=== PATIENT | female | born 1985 | race Caucasian/White ===

== ENCOUNTER 2023-10-03 18:33 | Emergency (ER) | payer BC ==
[~2023-10-03] VITALS: Ht 170.2 cm; Wt 56.8 kg
[2023-10-03 18:39] VITALS: TEMP 98
[2023-10-03 19:23] LABS: BASO # 0.1 K/mm3 (0.0-0.2); BASO % 0.8 % (0.0-2.0); EOS # 0.1 K/mm3 (0.0-0.7); EOS % 1.3 % (0.0-4.0); GRAN # 5.6 K/mm3 (1.4-6.5); GRAN % 58.9 % (42.2-75.2); HEMATOCRIT 40.4 % (37.0-47.0); HEMOGLOBIN 14.5 g/dl (12.5-16.0); LYMPH # 2.8 K/mm3 (1.2-3.4); LYMPH % 29.2 % (20.0-51.0); MEAN CELL VOLUME 88 fl (80.0-100.0); MEAN CORPUSCULAR HEMOGLOBIN 32 pg (27-31); MEAN CORPUSCULAR HGB CONC 36 g/dl (33.0-37.0); MEAN PLATELET VOLUME 9.8 fl (7.4-10.4); MONO # 0.9 K/mm3 (0.1-0.6); MONO % 9.6 % (1.7-9.3); PLATELET COUNT 424 K/mm3 (130-400); RED BLOOD COUNT 4.57 M/mm3 (4.10-5.30); REDCELL DISTRIBUTION WIDTH-CV 12.1 % (11.5-14.5)
[2023-10-03 19:50] LABS: COLLECTION METHOD CLEAN CATCH
[2023-10-03 20:16] LABS: PH 6.5 (5.0-8.5); URINE APPEARANCE Clear (CLEAR/HAZY); URINE BLOOD Negative (NEGATIVE); URINE COLOR Yellow (YELLOW); URINE GLUCOSE Negative (NEGATIVE); URINE KETONE Negative (NEGATIVE); URINE NITRATE Negative (NEGATIVE); URINE PROTEIN(semi-quant) Negative (NEGATIVE); URINE UROBILINOGEN 0.2 E.U/dL (0.2-1.0)
[2023-10-03 20:17] LABS: URINE RBC 0-2 /hpf (0-2)
[2023-10-03] MEDS ORDERED: Rho(D) Imm Globulin 1,500 UNITS (300 MCG)/2 ML SYRINGE IV\\IM SCH (21:00)
[2023-10-03 22:10] VITALS: BP 120/82; PULSE 78
== END 2023-10-03 22:10 | disposition home or self-care (01) ==
LOC: COL.ER 18:33
PROVIDERS: Nurse Practitioner
DX: O20.0 Threatened abortion (principal); O99.331 Smoking (tobacco) complicating pregnancy, first trimester; F17.200 Nicotine dependence, unspecified, uncomplicated; Z3A.01 Less than 8 weeks gestation of pregnancy
CPT/HCPCS: J2791

== ENCOUNTER → 2023-10-04 | Outpatient (CLI) | payer BC | LOC: COL.RAD 05:23 | DX: O20.0 Threatened abortion (principal) ==

== ENCOUNTER 2024-02-23 19:40 | Outpatient (CLI) | payer BC ==
[~2024-02-23] VITALS: Ht 170.2 cm; Wt 63.6 kg
[2024-02-23 19:45] VITALS: TEMP 98
[2024-02-23] MEDS ORDERED: LR 1,000 ML IV PRN (20:15)
[2024-02-23 20:45] VITALS: BP 121/62; PULSE 82; TEMP 98
[2024-02-23 20:53] LABS: COLLECTION METHOD CLEAN CATCH
[2024-02-23 20:56] LABS: URINE APPEARANCE CLEAR (CLEAR/HAZY); URINE BLOOD NEGATIVE (NEGATIVE); URINE COLOR YELLOW (YELLOW); URINE GLUCOSE NEGATIVE (NEGATIVE); URINE KETONE NEGATIVE (NEGATIVE); URINE NITRATE NEGATIVE (NEGATIVE); URINE PROTEIN(semi-quant) NEGATIVE (NEGATIVE); URINE UROBILINOGEN 0.2 E.U/dL (0.2-1.0)
--- NOTE | 2024-02-23 21:35 | NUR ---
IV FLUIDS COMPLETE. SL FLUSHED.
[2024-02-23] MEDS ORDERED: Betamethasone Acetate/Na Phos 6 MG/ML 5 ML MDV IM ONE (21:45)
[2024-02-23] MEDS ORDERED: Terbutaline 1 MG/ML 1 ML AMP SQ ONE (21:45)
--- NOTE | 2024-02-23 22:30 | NUR ---
PT STATES SHE IS FEELING BETTER NOW AND THE CTX'S HAVE GOTTEN FURTHER APART AND NOT TIGHT. SHE FEELS GOOD ABOUT GOING HOME. DISCHARGE PAPERWORK STARTED.
--- NOTE | 2024-02-23 22:50 | NUR ---
PT GIVEN WRITTEN AND VERBAL DISCHARGE INSTRUCTIONS. SHE WAS INFORMED TO RETURN 624 TO L&D TO GET HER SECOND DOSE OF BETAMETHAZONE. PT VERBALIZED UNDERSTANDING. SHE AMB TO BR TO VOID AND CHANGE INTO HER CLOTHES. PT AMB OUT TO HER CAR. PT NOT IN LABOR.
== END 2024-02-23 22:50 | disposition home or self-care (01) ==
LOC: LDRO 19:40
PROVIDERS: Student in an Organized Health Care Education/Training Program
DX: O47.02 False labor before 37 completed weeks of gestation, second trimester (principal); Z3A.26 26 weeks gestation of pregnancy
CPT/HCPCS: J0702; J3105; J7120

== ENCOUNTER 2024-02-24 21:38 | Outpatient (CLI) | payer BC ==
[~2024-02-24] VITALS: Ht 170.2 cm; Wt 63.6 kg
--- NOTE | 2024-02-24 21:38 | NUR ---
Ambulatory to unit for 2nd Betamethasone inj. Oriented to room, monitor plan of care. Questions invited and answerred. Pt denies uterine ctx, vaginal bleeding or LOF. States "I do have a backache but I'm moving"
[2024-02-24] MEDS ORDERED: Betamethasone Acetate/Na Phos 6 MG/ML 5 ML MDV IM ONE (21:45)
[2024-02-24 22:00] VITALS: BP 106/57; PULSE 89; TEMP 97.8
--- NOTE | 2024-02-24 22:10 | NUR ---
Difficult to maintain FHR tracing r/t gest age and frequent movements. Audible and palpable movements.
--- NOTE | 2024-02-24 22:40 | NUR ---
Discharge instructions reviewed with pt, questions invited and answerred. Ambulatory off unit.
== END 2024-02-24 22:40 | disposition home or self-care (01) ==
LOC: LDRO 21:38
DX: Z36.84 Encounter for antenatal screening for fetal lung maturity (principal); Z3A.26 26 weeks gestation of pregnancy
CPT/HCPCS: J0702

== ENCOUNTER 2024-05-09 18:10 | Inpatient (IN) | payer BC ==
[~2024-05-09] VITALS: Ht 170.2 cm; Wt 70.5 kg
[2024-05-09] VITALS (11 sets, daily range): BP systolic 140–155; BP diastolic 66–89; PULSE 70–96; TEMP 97.6–98.4
[~2024-05-09 18:10] MED LIST: PEPCID AC20 MG PO; PRENATAL TABLET PO; TUMS500 MG
--- NOTE | 2024-05-09 18:54 | NUR ---
PT OFF MONITORS TO AMBULATE HALLS.
[2024-05-09] MEDS ORDERED: LR 1,000 ML IV SCH (19:00)
[2024-05-09] MEDS ORDERED: LR & Oxytocin 500 ML IV SCH (19:00)
[2024-05-09 19:34] LABS: COLLECTION METHOD CLEAN CATCH
[2024-05-09 19:41] LABS: HEMATOCRIT 37.2 % (37.0-47.0); HEMOGLOBIN 12.8 g/dl (12.5-16.0); MEAN CELL VOLUME 88 fl (80.0-100.0); MEAN CORPUSCULAR HEMOGLOBIN 30 pg (27-31); MEAN CORPUSCULAR HGB CONC 34 g/dl (33.0-37.0); MEAN PLATELET VOLUME 11.9 fl (7.4-10.4); PLATELET COUNT 322 K/mm3 (130-400); RED BLOOD COUNT 4.22 M/mm3 (4.10-5.30); REDCELL DISTRIBUTION WIDTH-CV 13.2 % (11.5-14.5)
[2024-05-09 19:45] LABS: PH 6.5 (5.0-8.5); URINE APPEARANCE CLEAR (CLEAR/HAZY); URINE BLOOD TRACE (NEGATIVE); URINE COLOR YELLOW (YELLOW); URINE GLUCOSE NEGATIVE (NEGATIVE); URINE KETONE NEGATIVE (NEGATIVE); URINE NITRATE NEGATIVE (NEGATIVE); URINE PROTEIN(semi-quant) 2+ (NEGATIVE); URINE UROBILINOGEN 0.2 E.U/dL (0.2-1.0)
[2024-05-09 19:59] LABS: ALBUMIN 2.5 g/dL (3.5-5.0); BILIRUBIN,TOTAL 0.2 mg/dL (0.2-1.2); CALCIUM 8.5 mg/dL (8.4-10.2); CREATININE, serum 0.61 mg/dL (0.57-1.11); POTASSIUM 3.8 mEq/L (3.5-4.5); TOTAL PROTEIN 6.3 g/dl (6.2-8.1)
[2024-05-09 20:20] LABS: ANISOCYTOSIS 1+; BAND 3 % (0-10); LYMPHOCYTE 22 % (20.0-51.0); NEUTROPHILS 71 % (42.0-75.2); PLATELET ESTIMATE NORMAL (NORMAL)
[2024-05-09 21:24] LABS: TRICYCLIC ANTIDEPRESS URINE NEGATIVE (NEGATIVE)
--- NOTE | 2024-05-09 21:24 | NUR ---
PT OFF MONITORS TO AMBULATE HALLS.
[2024-05-10] VITALS (24 sets, daily range): BP systolic 66–147; BP diastolic 32–82; PULSE 62–100; TEMP 97.6–98.7
[2024-05-10] MEDS ORDERED: ROPivacaine PF 0.2% 200 ML IV ONE (00:21)
--- NOTE | 2024-05-10 00:40 | NUR ---
0010- PT REQUESTS EPIDURAL AND TO USE THE BATHROOM. PT OFF MONITOR TO USE BATHROOM, THIS NURSE TO CONTACT ANESTHESIA. 0013- Cameron AREVALO CRNA NOTIFIED OF PT REQUEST FOR EPIDURAL. WILL COME TO UNIT FOR EPIDURAL PLACEMENT. 0017- LR BOLUS STARTED, BP SET TO EVERY 5 MINUTES, PULSE OXIMETRY IN PLACE. 0027- Cameron AREVALO CRNA IN ROOM FOR EPIDURAL PLACEMENT. RISKS AND BENEFITS PRESENTED, PT OPTS FOR EPIDURAL PLACEMENT. PT TO SITTING POSITION FOR EPIDURAL PLACEMENT 0032- SINGLE SHOT GIVEN BY MIKE SMITH. PT TOLERATED WELL. 0040- REPOSITIONED PT TO LEFT WEDGE.
[2024-05-10] MEDS ORDERED: ePHEDrine 50 MG/10 ML VIAL IV PRN (01:00)
[2024-05-10] MEDS ORDERED: Naloxone 0.4 MG/ML VIAL IV PRN ×2 (01:00→06:45)
[2024-05-10] MEDS ORDERED: diphenhydrAMINE 25 MG CAP PO PRN (01:00)
[2024-05-10] MEDS ORDERED: diphenhydrAMINE 50 MG/ML 1 ML VIAL IV PRN (01:00)
[2024-05-10] MEDS ORDERED: Ondansetron 4 MG/2 ML VIAL IV PRN (01:00)
--- NOTE | 2024-05-10 03:28 | NUR ---
0203- THIS NURSE IN ROOM TO EVALUATE FOR CAUSE OF LATE DECELS. 0207- PT ASSISTED WITH POSITION CHANGED TO LEFT WEDGE AND FLUID BOLUS STARTED. 0116- PT STATES THAT SHE IS FEELING NAUSEATED AND BEGINNING TO HAVE PRESSURE AT THE PERINUEM. BP LOWER THAN PT'S BASELINE OF 140S/80S, BP CURRENTLY 107/55. WILL GIVE EPHEDRINE AND ZOFRAN. 0119- 10MG IV EPHEDRINE GIVEN, THEN 4MG ZOFRAN IV GIVEN. BP RECHECKED AND IMPROVED TO 146/81. 0224- SVE OF COMPLETE/+1 0228- DR. LIND NOTIFIED OF IMPENDING DELIVERY, ON HIS WAY FOR DELIVERY. 0230- FOY DCd, 275MLS OUT. 0238- DR. LIND IN ROOM FOR DELIVERY. BED BR0KEN DOWN. 0244- SPONTANEOUS VAGINAL DELIVERY OF VIABLE BABY GIRL THROUGH NUCHAL CORD X1. SPONTANEOUS CRY NOTED. CORD CLAMPED BY DR. LIND AND CUT BY SUPPORT PERSON. BABY TO MOTHER'S ABDOMEN AND BABY CARES ASSUMED BY Desmond MUNOZ RN. 0250- DR. LIND APPLIES GENTLE TRACTION TO THE CORD AND FUNDAL MASSAGE TO ASSIST WITH DELIVERY OF PLACENTA. PLACENTA DOESN'T RELEASE. DR. LIND THEN BEGINS REPAIR OF RIGHT LABIAL LACERATION. ONCE REPAIR COMPLETED HE AGAIN APPLIES GENTLE TRACTION TO THE CORD AND FUNDAL MASSAGE, MINIMAL BLEEDING NOTED BUT PLACENTA STILL DOESN'T RELEASE. PT STATES THAT DURING HER LAST DELIVERY SHE HAD THE SAME PROBLEM WITH NEEDING TO HAVE HER PLACENTA MANUALLY REMOVED. 0320- DR. LIND EXPLAINS TO PT AND SUPPORT PERSONS THAT HE WILL ATTEMPT A MANUAL REMOVAL OF PLACENTA. PT AGREES TO MANUAL REMOVAL ATTEMPT. AFTER SEVERAL MINUTES OF ATTEMPTING TO MANUALLY REMOVE PLACENTA, DR LIND WAS UNSUCCESSFUL AND RECOMMENDS GOING TO THE OR FOR A D&C. PT VERBALIZES UNDERSTANDING AND AGREES TO D&C. Cameron AREVALO CRNA AND AAKASH [employer] DIVISION DIRECTOR NOTIFIED BY BULMARO OF PLAN OF CARE. MIKE SMITH TO DOSE EPIDURAL FOR D&C. 0325- MIKE SMITH IN ROOM TO DOSE EPIDRUAL. 0328- MONITORING DCd AND PT TO OR FOR D&C VIA BED.
[2024-05-10] MEDS ORDERED: Midazolam 2 MG/2 ML VIAL ONE (03:47)
[2024-05-10] MEDS ORDERED: Ketorolac 30 MG/ML VIAL ONE (03:56)
[2024-05-10] MEDS ORDERED: Ondansetron 4 MG/2 ML VIAL ONE (03:56)
[2024-05-10] MEDS ORDERED: Oxytocin 10 UNITS/ML VIAL ONE (04:10)
[2024-05-10] MEDS ORDERED: Magnes Hydrox (MOM) 80 MG/ML 30 ML CUP PO PRN (04:30)
[2024-05-10] MEDS ORDERED: Loratadine 10 MG TAB PO PRN (04:30)
--- NOTE | 2024-05-10 04:35 | NUR ---
0347- PT TO OR VIA BED FOR D&C FOR RETAINED PLACENTA. PT ASSISTED TO OR TABLE. BLEEDING SCANT IN LABOR ROOM PRIOR TO ARRIVAL TO OR. WHEN SHEETS REMOVED TO PREP FOR D&C LARGE AMOUNT OF FREE FLOW BLEEDING NOTED. WILL WEIGH ALL TOWELS, CHUX PADS, ETC. LEGS PLACED IN STIRRUPS, SCRUB PERFORMED BY THIS NURSE, HEAVY BLEEDING CONTINUES. DR. LIND ATTEMPTS ONCE LAST TIME TO REMOVE PLACENTA WITH FUNDAL MASSAGE BUT IS AGAIN UNSUCCESSFUL. WILL MOVE FORWARD WITH D&C. SEE PHYSICIAN AND ANESTHESIA RECORDS. QBL IN OR OF 725, PHYSICIAN AWARE. PT STABLE AND TO RETURN TO LABOR ROOM FOR RECOVERY. 0425- PT RETURNS TO LABOR ROOM FOR RECOVERY. INITIAL BP OF 70/30s, PT STATES THAT SHE DOESN'T FEEL GOOD. 0427- FLUID BOLUS STARTED, EPHEDRINE 10MG GIVEN IV. PT CONTINUES TO STATES SHE DOESN'T FEEL GOOD 0429- BP RECHECKED, 60/30S. CHARGE NURSE NOTIFIED AND ASKED TO CONTACT ANESTHESIA. PT LAID FLAT, ANESTHESIA INSTRUCTS CHARGE TO BRING A PRESSURE BAG IN FOR FLUIDS. THIS NURSE CURRENTLY SQUEEZING IV FLUIDS IN. KRYSTIN CHAMBERLAIN AND Nicolette CHAUDHARY RN IN ROOM TO ASSIST. 0435- BP IMPROVED TO 109/68, PT STATES THAT SHE IS BEGINING TO FEEL BETTER. IVF REMAINS ON PRESSURE BAG. PITOCIN RUNNING AT 333ML/HR PER PROTOCOL. RECOVERY STARTED.
[2024-05-10] MEDS ORDERED: oxyCODONE 5 MG TAB PO PRN (06:45)
[2024-05-10] MEDS ORDERED: Measles/Mumps/Rubella Virus Vaccine Live w Diluent 0.5 ML VIAL SQ SCH (06:45)
[2024-05-10] MEDS ORDERED: Phenylephrine/Mineral Oil/Petrolatum 57 GM TUBE RC PRN (06:45)
[2024-05-10] MEDS ORDERED: Acetaminophen 500 MG TAB PO SCH (06:45)
[2024-05-10] MEDS ORDERED: Mag/Al Hydrox/Simeth Susp 30 ML CUP PO PRN (06:45)
[2024-05-10] MEDS ORDERED: Witch Hazel 50% Pads Bulk TUB TP PRN (06:45)
[2024-05-10] MEDS ORDERED: Sennosides/Docusate 8.6-50 MG TAB PO SCH (08:00)
[2024-05-10] MEDS ORDERED: Ibuprofen 800 MG TAB PO SCH ×2 (10:00→14:45)
--- NOTE | 2024-05-10 10:56 | NUR ---
0815 REPORT TAKEN FROM Brooks VILLA RN AND CARE ASSUMED. 0820 PATIENT RESTING IN BED WITH MALE FRIEND AT BEDSIDE. STATES IS IN A LOT OF PAIN WITH ABDOMNIAL CRAMPING, BACK, AND PERINEAL PAIN. OFFERED KPAD FOR BATH. REVIEWED MEDICATIONS AVAILABLE AND DENIES NARCOTIC AT THIS TIME. INT NOTED TO L FORE ARM. PATIENT EDUCATED TO ROOM AND MENU. STATES SHE'S GETTING READY TO FEED BABY. 0830 UPDATED ON BABY'S LOW TEMPERATURE AND NEED TO STAY IN NURSERY ON WARMER. PATIENT TEARFUL. KPAD PROVIDED. EDUCATED SHE CAN COME TO NURSERY TO BE WITH BABY IF SHE WOULD LIKE. 0900 VS AND ASSESSMENT COMPLETED. FUNDUS BOGGY AT FIRST. PATIENT ENCOURAGED TO ATTEMPT TO EMPTY BLADDER TO HELP KEEP UTERUS FIRM. PATIENT STATES UNDERSTANDING. 0930 PATIENT REPORTS VOIDED A LARGE AMOUNT. WORRIED THAT BABY DIDN'T NURSE. OFFERED PATIENT A PUMP. 0945 PATIENT USES BREAST PUMP AND OBTAINS 12ML COLOSTRUM.
--- NOTE | 2024-05-10 12:50 | NUR ---
PATIENT REQUEST TO LEAVE UNIT. 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 PATIENT EDUCATED SHE CAN'T LEAVE FLOOR ALONE AND REMINDED THAT THE CAMPUS IS A NON SMOKING CAMPUS EVEN IN THE PARKING LOT. ENCOURAGED TO HAVE SIGNIFICANT OTHER OBTAIN ITEMS.
[2024-05-10 12:59] LABS: BASO # 0.1 K/mm3 (0.0-0.2); BASO % 0.3 % (0.0-2.0); EOS # 0.1 K/mm3 (0.0-0.7); EOS % 0.5 % (0.0-4.0); GRAN # 15.3 K/mm3 (1.4-6.5); GRAN % 77.5 % (42.2-75.2); LYMPH % 15.1 % (20.0-51.0); MEAN CELL VOLUME 87 fl (80.0-100.0); MEAN CORPUSCULAR HGB CONC 35 g/dl (33.0-37.0); MEAN PLATELET VOLUME 11.5 fl (7.4-10.4); MONO # 1.2 K/mm3 (0.1-0.6); MONO % 5.8 % (1.7-9.3); PLATELET COUNT 321 K/mm3 (130-400); RED BLOOD COUNT 3.45 M/mm3 (4.10-5.30); REDCELL DISTRIBUTION WIDTH-CV 13.2 % (11.5-14.5)
[2024-05-10 13:05] LABS: HEMATOCRIT 29.9 % (37.0-47.0); MEAN CORPUSCULAR HEMOGLOBIN 30 pg (27-31)
[2024-05-10 13:06] LABS: HEMOGLOBIN 10.5 g/dl (12.5-16.0)
--- NOTE | 2024-05-10 15:24 | NUR ---
tradeshow worker received consult for pt with a history of substance use, adopted child, and one child with it's father due to custody. SW spoke with OB Dr. Menon who has no concerns for . SW spoke with RN Nickie who advised pt was negative for UDS upon admission. RN reports she is being appropriate with infant. RN states pt wanted information on DNA/paternity testing. RELL spoke with Director Nicole who reports this hospital does not do it, but obtained a DNA pamphelet from the OB storage closet. Anastasiia was crying heavily when SW entered the room. She was being positively comforted by male friend. She allowed SW to enter and discuss with her. She reports irritation with the Charge Nurse not allowing her to leave the building, to the parking lot, and smoke a ciggarette. She expressed frustration that the Nicotine patch is not the same and she feels like she is in a group home. SW empathized with her and allowed her to express feelings. SW advised she could not assist with those things, unfortunately but was willing to have RN or OB facilities maintenance manager talk with her. She politely declined and was willing to talk with SW to distract her. Pt was able to gather herself following this. SW met with pt and her friend, "Yoni" to discuss information. She reports to live in [place] and confirms her address as [phone]. She verified her insurance as [employer]. 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 She reports to have transportation and a daycare aligned for infant, René. She reports her friend, Yoni and "the family" as a good support. She reports knowing him for many years and being involved with his family in [place]. She states that she also has friends local. She informs SW her mother is around and supportive, but not always reliable. She informs SW she is not connected to any resources and makes too much for WIC and food stamps. She intends to breast feed, but begins to cry again expressing frustration with being sleepy. SW attempted to inquire about ways to wake baby to feed, but then she reports that 's temp dropped when she tried to unwrap her to feed. SW offered to have the Automobile Upholsterer Apprentice director of sustainability come in to assist. She declined and reports baby is doing well and SW provided assurance that they will monitor baby to make sure she is doing alright. She was tended lovingly and appropriately to baby who was sound asleep. She was redirected to and informed her that baby was born around 0200 am and she would like to discharge around that time. SW advised they typically do not discharge in the night due to preference. SW informed her she should continue to talk to KRYSTIN Fu about her concerns, and that she has the option to sign AMA, but it is not reccomended for safety purposes, but she is not held in a "group home" and they could discuss further with her. Pt was satisfied with this and calmed down again. She informed SW she has a pump at home she got through insurance. She has a bassinet, car seat in the car, and enough diapers/wipes. Pt made a joke about being the one to install the car seat (so she could smoke.) She reports it as not installed in the car. She informs SW she [facility] and has not decided on a Dr. for baby. She expressed stress around this. SW advised [facility], or she could search any local doctor's and call them. She reports that she will look into this so she can finally tell people infant has a Dr. now. SW inquired about Mental Health or TIERRA concerns, also PPD/PPA. Pt reports she has no concerns and is just "irritated." She states she is not sad and just wants to smoke. She reports not seeing a therapist for MH or TIERRA. SW inquired about other children. Pt paused, then reports to have two children now. She reports her 10 year-old daughter intends to visit tomorrow and she indicates that Yoni is the father as "he will pick her up." He reports he will do this tomorrow as he is tired today from being up for many hours. Pt admiringly looks at and tells SW she has not done "this" is many years so she is learning all over again. SW provided assurance that "this" is all new and offered resources such as Maternal Health Program, [facility], [facility], and the marriage and family social worker card from the [facility]. Pt was appreciative of this and SW made note of the Maternal Program assisting with nurse checks and lacatation support. SW provided DNA testing pamphlet and pt reports she will look into it but did not want "the ingrid" to pay $1,300 when that could be better spent on daycare. She states she is safe and it is just "annoying stuff." SW advised she is willing to provide further assistance, if needed. RELL provided update to KRYSTIN Fu about pt eager to leave to smoke and crying multiple times for further support/assistance.
[2024-05-10] MEDS ORDERED: traZODone 50 MG TAB PO PRN (21:00)
[2024-05-11 07:50] VITALS: BP 139/85; PULSE 75; TEMP 97.8
--- NOTE | 2024-05-11 08:22 | NUR ---
0715 PT REQUESTING TO GO OUTSIDE TO HELP FOB PLACE CARSEAT BASE IN CAR. RN INFORMS PT THAT WE DO NOT ALLOW PATIENTS TO LEAVE THE UNIT WHILE THEY ARE STILL PATIENTS. PATIENT THEN STATES "SO IM A PRISONER?". RN INFORMS PATIENT OF POLICY BUT PT STILL DECIDES TO GO OUTSIDE WITH FOB AND DROPS INFANT OFF AT NURSERY, STATING SHE WILL BE BACK SHORTLY.
[2024-05-11] MEDS ORDERED: IBU800 M1 PO (10:28)
--- NOTE | 2024-05-11 12:25 | NUR ---
PT DISCHARGED HOME, AMBULATES OUT OF FACILITY ACCOMPANIED BY RN.
== END 2024-05-11 12:25 | disposition home or self-care (01) | DRG 798 ==
LOC: LDRO 18:10 → LDR 21:07 → OB 21:07
PROVIDERS: Obstetrics & Gynecology; ADMIT Obstetrics & Gynecology
PROC: 10E0XZZ Delivery of Products of Conception, External Approach (ICD-10-PCS; principal; 2024-05-10)
PROC: 10D17ZZ Extraction of Products of Conception, Retained, Via Natural or Artificial Opening (ICD-10-PCS; 2024-05-10)
PROC: 0UQMXZZ Repair Vulva, External Approach (ICD-10-PCS; 2024-05-10)
DX: O24.420 Gestational diabetes mellitus in childbirth, diet controlled (principal); Z37.0 Single live birth; Z3A.37 37 weeks gestation of pregnancy; O99.334 Smoking (tobacco) complicating childbirth; F17.200 Nicotine dependence, unspecified, uncomplicated; O69.81X0 Labor and delivery complicated by cord around neck, without compression, not applicable or unspecified; O70.0 First degree perineal laceration during delivery; O73.0 Retained placenta without hemorrhage
CPT/HCPCS: J0690; J1885; J2250; J2405; J2590; J2795; J7120